=== PATIENT | female | born 1945 | race Caucasian/White ===

== ENCOUNTER → 2017-05-11 | Outpatient (CLI) | payer OTHER | LOC: CIMAGING 14:41 | PROVIDERS: ATTEND Obstetrics & Gynecology | DX: Z12.31 Encounter for screening mammogram for malignant neoplasm of breast (principal); R92.0 Mammographic microcalcification found on diagnostic imaging of breast | CPT/HCPCS: G0202 ==

== ENCOUNTER → 2017-06-01 | Outpatient (CLI) | payer OTHER | LOC: CIMAGING 12:58 | PROVIDERS: ATTEND Physician Assistant Surgical | DX: R92.8 Other abnormal and inconclusive findings on diagnostic imaging of breast (principal) | CPT/HCPCS: G0206 ==

== ENCOUNTER → 2017-07-13 | Outpatient (CLI) | payer OTHER ==
[~2017-07-13] MED LIST: BUPIVACAINE 0.5% 10 ML SDV ONE; LIDOCAINE 1% 300 MG/30 ML SDV ONE; THROMBIN (BOVINE) 5,000 UNIT VIAL TP ONE
== END ==
LOC: FIMAGING 07:08
PROVIDERS: ATTEND Physician Assistant Surgical
PROC: 0HBU3ZX Excision of Left Breast, Percutaneous Approach, Diagnostic (ICD-10-PCS; principal; 2017-07-13)
DX: D24.2 Benign neoplasm of left breast (principal)

== ENCOUNTER → 2018-01-26 | Outpatient (CLI) | payer OTHER | LOC: CIMAGING 12:58 | PROVIDERS: ATTEND Physician Assistant Surgical | DX: D24.2 Benign neoplasm of left breast (principal) ==

== ENCOUNTER → 2018-07-18 | Outpatient (CLI) | payer OTHER | LOC: CIMAGING 10:08 | PROVIDERS: ATTEND Physician Assistant Surgical | DX: Z12.31 Encounter for screening mammogram for malignant neoplasm of breast (principal) ==